=== PATIENT | male | born 1940 | race Caucasian/White ===

== ENCOUNTER 2019-10-20 10:34 | Emergency (ER) | payer MEDICARE, OTHER ==
[~2019-10-20] VITALS: Ht 182.9 cm; Wt 109.1 kg
[~2019-10-20 10:34] MED LIST: ALBU8HFA PO; BENA40TA73 PO; CLOP75TA35 PO; FAMO40TA58 PO; FLUT1BLS4 PO
[2019-10-20 11:43] LABS: BASOPHILS # (AUTO) 0.1 X10'3 (0-0.2); BASOPHILS % (AUTO) 1.2 % (0-1); EOSINOPHILS % (AUTO) 0.4 % (0-6); HEMATOCRIT 42.2 % (42.0-52.0); HEMOGLOBIN 13.9 g/dl (14.0-17.9); LYMPHOCYTES # (AUTO) 0.6 X10'3 (1.1-4.8); LYMPHOCYTES % (AUTO) 9.8 % (21-51); MEAN CORPUSCULAR HEMOGLOBIN 31.6 PG (27.0-31.0); MEAN CORPUSCULAR VOLUME 95.9 FL (78-98); MEAN PLATELET VOLUME 11.3 FL (7.4-10.4); MONOCYTES # (AUTO) 0.7 X10'3 (0-0.9); MONOCYTES % (AUTO) 11.4 % (2-12); NEUTROPHILS # (AUTO) 4.7 X10'3 (1.8-7.7); NEUTROPHILS % (AUTO) 77.2 % (42-75); PLATELET COUNT 151 X10'3 (140-440); RED BLOOD COUNT 4.41 X10'6 (4.70-6.10); RED CELL DISTRIBUTION WIDTH 15.1 % (11.5-14.5); WHITE BLOOD COUNT 6.1 X10'3 (4.5-11.0)
[2019-10-20 11:58] LABS: ALANINE AMINOTRANSFERASE 27 U/L (12-78); ALBUMIN 3.5 G/DL (3.4-5.0); ALKALINE PHOSPHATASE 125 IU/L (46-116); ANION GAP 5 (8-16); ASPARTATE AMINO TRANSFERASE 34 U/L (10-37); BLOOD UREA NITROGEN 15 MG/DL (7-18); BUN/CREATININE RATIO 12.9 (5.4-32.0); CHLORIDE 104 MMOL/L (99-107); CREATININE 1.16 MG/DL (0.60-1.10); GLUCOSE 103 MG/DL (70-104); POTASSIUM 3.3 MMOL/L (3.5-5.1); SODIUM 141 MMOL/L (135-145); TOTAL CARBON DIOXIDE 32.4 MMOL/L (24-32); eGFR 61 ML/MIN
[2019-10-20 12:12] LABS: LARGE PLATELETS FEW; PLATELET ESTIMATE NORMAL
[2019-10-20] MEDS ORDERED: furosemide 10 MG/1 ML 10ml inj IV ONE (13:30)
[2019-10-20] MEDS ORDERED: potassium chloride 8mEq ER tablet PO STA (13:30)
[2019-10-20] MEDS ORDERED: furosemide 40mg/4ml inj IV ONE (13:35)
[2019-10-20 13:46] VITALS: BP 142/91
== END 2019-10-20 18:34 | disposition home or self-care (01) ==
LOC: ER 10:34
DX: R60.0 Localized edema (principal); I25.10 Atherosclerotic heart disease of native coronary artery without angina pectoris; I50.9 Heart failure, unspecified; I11.0 Hypertensive heart disease with heart failure; I25.2 Old myocardial infarction; Z95.1 Presence of aortocoronary bypass graft; Z79.899 Other long term (current) drug therapy
CPT/HCPCS: 36415; 71045; 80053; 84484; 85025; 96374; 99285; J1940